=== PATIENT | female | born 1985 | race Caucasian/White ===

== ENCOUNTER 2017-01-25 12:00 | Outpatient (CLI) | payer OTHER ==
[~2017-01-25] VITALS: Ht 160 cm; Wt 79.4 kg
[2017-01-25 12:48] VITALS: BP 121/71
== END 2017-01-25 14:06 | disposition home or self-care (01) ==
LOC: LDOP 12:00
PROVIDERS: ATTEND Obstetrics & Gynecology Maternal & Fetal Medicine
DX: O46.93 Antepartum hemorrhage, unspecified, third trimester (principal); Z3A.32 32 weeks gestation of pregnancy
CPT/HCPCS: 59025; 99211; G0463

== ENCOUNTER 2017-03-11 10:41 | Observation (INO) | payer OTHER ==
[~2017-03-11] VITALS: Ht 162.6 cm; Wt 92.2 kg
[2017-03-11 11:06] VITALS: BP 126/83
== END 2017-03-12 08:15 | disposition home or self-care (01) ==
LOC: LDOP 10:41 → LDIP 14:16
PROVIDERS: ADMIT Obstetrics & Gynecology Maternal & Fetal Medicine; ATTEND Obstetrics & Gynecology Maternal & Fetal Medicine
DX: O46.93 Antepartum hemorrhage, unspecified, third trimester (principal); Z3A.37 37 weeks gestation of pregnancy
CPT/HCPCS: 59025; G0378